=== PATIENT | female | born 1975 ===

== ENCOUNTER 2020-07-12 12:00 | Inpatient (IN) | payer OTHER ==
[~2020-07-12] VITALS: Ht 160 cm; Wt 68.0 kg
== END 2020-07-21 11:46 | DRG 740 ==
LOC: OB/GYN 07-14 06:48 → O/R 07-14 06:48 → OB/GYN 07-14 08:30
PROVIDERS: ADMIT Specialist; ATTEND Specialist
PROC: 0UB70ZZ Excision of Bilateral Fallopian Tubes, Open Approach (ICD-10-PCS; 2020-07-14)
PROC: 07BC0ZZ Excision of Pelvis Lymphatic, Open Approach (ICD-10-PCS; 2020-07-14)
PROC: 0UT90ZZ Resection of Uterus, Open Approach (ICD-10-PCS; principal; 2020-07-14 08:30)
DX: C53.0 Malignant neoplasm of endocervix (principal); N39.0 Urinary tract infection, site not specified; K29.00 Acute gastritis without bleeding; D25.1 Intramural leiomyoma of uterus